=== PATIENT | female | born 1990 ===

== ENCOUNTER 2018-02-21 14:27 | Emergency (ER) | payer MEDICAID, OTHER ==
[2018-02-21 15:04] VITALS: BP 117/77; PULSE 56; RESP 17; TEMP 98.5; O2SAT 100; BMI 23.3
--- NOTE | 2018-02-21 15:28 | ED PDOC ---
Arrival/HPI - General Chief Complaint: Female Genitourinary Time Seen by Provider: 02/21/18 15:12 Historian: Patient - History of Present Illness Narrative History of Present Illness (Text): 02/21/18 15:20 27yo female with no pmhx who present with 4days history of sharp/stabbing pelvic pain that radiates down her legs. States she was taking Tylenol with mild relieve. States her period lasted for 3weeks before the pain started and she has been having odorous vaginal discharge since the pain started. She notes that she is sexually active. Denies nausea, vomiting, diarrhea, dizziness chest pain, SOB, any other complaint. Past Medical History - Provider Review Nursing Documentation Reviewed: Yes - Psychiatric Hx Substance Use: No - Surgical History Other/Comment: IUD Family/Social History - Physician Review Nursing Documentation Reviewed: Yes Family/Social History: Unknown Family HX Smoking Status: Never Smoked Hx Alcohol Use: No Hx Substance Use: No Allergies/Home Meds Allergies/Adverse Reactions: Allergies No Known Allergies Allergy (Verified 02/21/18 15:03) Review of Systems - Physician Review All systems were reviewed & negative as marked: Yes - Review of Systems Constitutional: Normal Eyes: Normal ENT: Normal Respiratory: Normal Cardiovascular: Normal Gastrointestinal: Abdominal Pain. absent: Constipation, Diarrhea, Nausea, Vomiting, Hematochezia, Hematemesis Genitourinary Female: Vaginal Discharge. absent: Dysuria, Frequency, Hematuria Musculoskeletal: Normal Skin: Normal Neurological: Normal Endocrine: Normal Hemo/Lymphatic: Normal Psychiatric: Normal Physical Exam Vital Signs Reviewed: Yes Vital Signs Temp Pulse Resp BP Pulse Ox 02/21/18 15:03 98.5 F 56 L 17 117/77 100 Temperature: Afebrile Blood Pressure: Normal Pulse: Regular Respiratory Rate: Normal Appearance: Positive for: Well-Appearing, Non-Toxic, Comfortable Pain Distress: None Mental Status: Positive for: Alert and Oriented X 3 - Systems Exam Head: Present: Atraumatic, Normocephalic Pupils: Present: PERRL Extroacular Muscles: Present: EOMI Conjunctiva: Present: Normal Mouth: Present: Moist Mucous Membranes Neck: Present: Normal Range of Motion Respiratory/Chest: Present: Clear to Auscultation, Good Air Exchange. No: Re spiratory Distress, Accessory Muscle Use Cardiovascular: Present: Regular Rate and Rhythm, Normal S1, S2. No: Murmurs Abdomen: Present: Tenderness (PElvic), Normal Bowel Sounds. No: Distention, Peritoneal Signs, Rebound, Guarding, McBurney's Point Tender, Rovsing's Sign Present Genitourinary/Pelvic Exam: Present: Vaginal Discharge (Frothy whitish discharge noted in vault). No: Cervical Motion Tendernes Back: Present: Normal Inspection Upper Extremity: Present: Normal Inspection. No: Cyanosis, Edema Lower Extremity: Present: Normal Inspection. No: Edema Neurological: Present: GCS=15, CN II-XII Intact, Speech Normal Skin: Present: Warm, Dry, Normal Color. No: Rashes Psychiatric: Present: Alert, Oriented x 3, Normal Insight, Normal Concentration Medical Decision Making ED Course and Treatment: 02/21/18 17:15 PT in ED for stated history. She was not in any distress. She had pelvic tenderness and US was ordered to r/o ovarian torsion. UA and Chlamydia/Gono ordered. She have UTI and was treated she also requested to be treated for STD and Rocephin/Azithromycin was given Advised to abstain from sex until she gets her result and if positive have the sexual partner treated - Lab Interpretations Lab Results: Lab Results 02/21/18 15:40: Urine Color Light yellow, Urine Appearance Clear, Urine pH 7.0, Ur Specific Pattison 1.010, Urine Protein Negative, Urine Glucose (UA) Negative, Urine Ketones Negative, Urine Blood Negative, Urine Nitrate Negative, Urine Bilirubin Negative, Urine Urobilinogen 0.2, Ur Leukocyte Esterase Large H, Urine RBC Negative, Urine WBC 2 - 5, Ur Epithelial Cells 1 - 3, Urine Bacteria Trace - RAD Interpretation Radiology Orders: 02/21/18 15:19 PELVIS ULTRASOUND [US] Routine - Medication Orders Current Medication Orders: Discontinued Medications Azithromycin (Zithromax) 1,000 mg PO STAT STA; Protocol Stop: 02/21/18 17:03 Ceftriaxone Sodium (Rocephin) 250 mg IM STAT STA; Protocol Stop: 02/21/18 17:02 Disposition/Present on Arrival - Present on Arrival Any Indicators Present on Arrival: No History of DVT/PE: No History of Uncontrolled Diabetes: No Urinary Catheter: No History of Decub. Ulcer: No History Surgical Site Infection Following: None - Disposition Have Diagnosis and Disposition been Completed?: Yes Diagnosis: UTI (urinary tract infection), Vaginal discharge Disposition: HOME/ ROUTINE Disposition Time: 17:10 Patient Plan: Discharge Patient Problems: Current Active Problems Problem Status Onset UTI (urinary tract infection) Acute Vaginal discharge Acute Condition: STABLE Discharge Instructions (ExitCare): Urinary Tract Infections in Adults Additional Instructions: Follow up with your [employer]UFA[employer]ING [employer] TECHNICIAN Return to ED for any new or worsening symptoms Prescriptions: Cephalexin [Keflex] 500 mg PO TID #21 capsule Referrals: PCP,NO [Primary Care Provider] - Follow up with primary [facility] at [facility] [place] [Outside] - [facility] [Outside] - Follow up with primary Forms: [employer] (Kinyarwanda)
[2018-02-21 15:59] LABS: URINE APPEARANCE CLEAR (CLEAR); URINE BILIRUBIN NEGATIVE (NEGATIVE); URINE BLOOD NEGATIVE (NEGATIVE); URINE COLOR LIGHT YELLOW (YELLOW); URINE GLUCOSE (UA) NEGATIVE (NEGATIVE); URINE LEUKOCYTE ESTERASE LARGE Leu/uL (NEGATIVE); URINE PROTEIN NEGATIVE mg/dL (<30 mg/dL); URINE UROBILINOGEN 0.2 E.U./dL (<1 E.U./dL)
[2018-02-21 16:18] LABS: URINE BACTERIA TRACE (NEG); URINE RBC NEGATIVE /hpf (0-2)
--- NOTE | 2018-02-21 16:54 | US ---
Date of service: 02/21/2018 HISTORY: PElvic pain COMPARISON: None available. TECHNIQUE: Transabdominal pelvic ultrasound FINDINGS: UTERUS: Measures 10.1 x 5.0 x 6.7 cm. Anteverted. ENDOMETRIUM: IUD. CERVIX: No cervical abnormality identified. RIGHT OVARY: Measures 3.4 x 2.6 x 3.7 cm. Blood flow is demonstrated. LEFT OVARY: Measures 3.3 x 2.7 x 3.2 cm. Blood flow is demonstrated. FREE FLUID: Small fluid, right adnexal region. OTHER FINDINGS: None. IMPRESSION: IUD. Small adnexal fluid on the right.
[2018-02-21] MEDS ORDERED: cefTRIAXone (Rocephin) 250 mg Inj IM STA (17:01)
== END 2018-02-21 17:20 | disposition home or self-care (01) ==
LOC: ED 14:27
DX: N39.0 Urinary tract infection, site not specified (principal); N89.8 Other specified noninflammatory disorders of vagina

== ENCOUNTER 2018-02-27 18:04 | Emergency (ER) | payer MEDICAID ==
[2018-02-27 18:05] VITALS: BMI 23.3
--- NOTE | 2018-02-27 18:44 | ED PDOC ---
Arrival/HPI - General Historian: Patient - History of Present Illness Narrative History of Present Illness (Text): 02/27/18 18:41 27 y/o female, no signifiant pmh, nkda, her for the treatment for gonorrhea/chlamdyia and prescription change for her UTI. Pt. was call back by me as she stated that she didn't received her rocephine and azithromycin on the last ER visit, no abdominal or pelvic pain, no vaginal bleeding or discharge, no headache or night sweat, no fever or chills, no weight loss, no fatigue or dizziness, no night sweat. Pt.'s urine culture noted to have enterococcus faecalis >100,000, received keflex and no sensitivity done on the cephalosporin but sensitive to the macrobid. Pt. has no flank pain. Pt. still has the prescription for the keflex and she never fill the prescription. I reviewed the triage note from the DEMAND PLANNER, my assessment to the patient and HPI is different than the triage. Pt. disagreed with the triage DEMAND PLANNER as well. <Dragan Lo - Last Filed: 02/27/18 19:14> <Arron Patricia - Last Filed: 02/27/18 19:18> - General Time Seen by Provider: 02/27/18 18:40 Past Medical History - Provider Review Nursing Documentation Reviewed: Yes - Psychiatric Hx Substance Use: No - Surgical History Other/Comment: IUD <Dragan Lo - Last Filed: 02/27/18 19:14> Family/Social History - Physician Review Nursing Documentation Reviewed: Yes Family/Social History: Unknown Family HX Smoking Status: Never Smoked Hx Alcohol Use: No Hx Substance Use: No <Dragan Lo - Last Filed: 02/27/18 19:14> Allergies/Home Meds <Dragan Lo - Last Filed: 02/27/18 19:14> <Arron Patricia - Last Filed: 02/27/18 19:18> Allergies/Adverse Reactions: Allergies No Known Allergies Allergy (Verified 02/21/18 15:03) Review of Systems - Review of Systems Constitutional: absent: Fatigue, Fevers Eyes: absent: Vision Changes ENT: absent: Hearing Changes Respiratory: absent: SOB, Cough Cardiovascular: absent: Chest Pain Gastrointestinal: absent: Abdominal Pain, Nausea, Vomiting Musculoskeletal: absent: Arthralgias, Back Pain Skin: absent: Rash, Pruritis Neurological: absent: Headache, Dizziness Psychiatric: absent: Anxiety, Depression, Suicidal Ideation <Dragan Lo - Last Filed: 02/27/18 19:14> Physical Exam - Systems Exam Head: Present: Atraumatic, Normocephalic Pupils: Present: PERRL Extroacular Muscles: Present: EOMI Conjunctiva: Present: Normal Mouth: Present: Moist Mucous Membranes Neck: Present: Normal Range of Motion Respiratory/Chest: Present: Clear to Auscultation, Good Air Exchange. No: Respiratory Distress, Accessory Muscle Use Cardiovascular: Present: Regular Rate and Rhythm, Normal S1, S2. No: Murmurs Abdomen: No: Tenderness, Distention, Peritoneal Signs Genitourinary/Pelvic Exam: Present: Other (Pt. declined) Back: Present: Normal Inspection Upper Extremity: Present: Normal Inspection. No: Cyanosis, Edema Lower Extremity: Present: Normal Inspection. No: Edema Neurological: Present: GCS=15, CN II-XII Intact, Speech Normal, Motor Func Grossly Intact, Gait Normal, Memory Normal Skin: Present: Warm, Dry, Normal Color. No: Rashes Psychiatric: Present: Alert, Oriented x 3, Normal Insight, Normal Concentration <Dragan Lo - Last Filed: 02/27/18 19:14> Vital Signs Temp Pulse Resp BP Pulse Ox 02/27/18 18:45 99.1 F 54 L 18 120/64 100 <Arron Patricia - Last Filed: 02/27/18 19:18> Medical Decision Making ED Course and Treatment: 02/27/18 18:44 -Urine hcg is negative -Rocephine and azithromycin, chlamydia is positive on 02/21/2018 visit, double checked and confirmed with the patient that she didn't received any po or IM medication in the ER and only discharge home with keflex. -Discharge home with macrobid, stop having sex for 1 week and repeat the gonorrhea/chlamydia test after 1 week with urinalysis to ensure the resolution, follow up with your own pmd and obgyn within 2 days, notify all sexual partners for the prophylatic treatment and std testing, return to the ER for any new or worsening signs or symptoms. <Dragan Lo - Last Filed: 02/27/18 19:14> - Medication Orders Current Medication Orders: Azithromycin (Zithromax) 1,000 mg PO STAT STA; Protocol Stop: 02/27/18 19:16 Ceftriaxone Sodium (Rocephin) 250 mg IM STAT STA; Protocol Stop: 02/27/18 19:16 Nitrofurantoin Macrocrystals (Macrobid) 100 mg PO STAT STA; Protocol Stop: 02/27/18 19:16 <Arron Patricia - Last Filed: 02/27/18 19:18> - PA / TRIPE COOKER / Resident Statement BRUNO has reviewed & agrees with the documentation as recorded. <Dragan Lo - Last Filed: 02/27/18 19:14> - PA / TRIPE COOKER / Resident Statement BRUNO has reviewed & agrees with the documentation as recorded. <Arron Patricia - Last Filed: 02/27/18 19:18> Disposition/Present on Arrival - Present on Arrival Any Indicators Present on Arrival: No History of DVT/PE: No History of Uncontrolled Diabetes: No Urinary Catheter: No History of Decub. Ulcer: No History Surgical Site Infection Following: None - Disposition Have Diagnosis and Disposition been Completed?: Yes Disposition Time: 18:46 Patient Plan: Discharge <Dragan Lo - Last Filed: 02/27/18 19:14> <Arron Patricia - Last Filed: 02/27/18 19:18> - Disposition Diagnosis: UTI (urinary tract infection), Chlamydia Disposition: HOME/ ROUTINE Patient Problems: Current Active Problems Problem Status Onset Chlamydia Acute UTI (urinary tract infection) Acute Condition: GOOD Additional Instructions: -Discharge home with macrobid, stop having sex for 1 week and repeat the g onorrhea/chlamydia test after 1 week with urinalysis to ensure the resolution, follow up with your own pmd and obgyn within 2 days, notify all sexual partners for the prophylatic treatment and std testing, return to the ER for any new or worsening signs or symptoms. Prescriptions: Nitrofurantoin Macrocrystals [Macrobid] 100 mg PO BID #14 cap Referrals: Sallie Justin MD [Staff Provider] - Follow up with primary [facility] at [facility] [place] [Outside] - Follow up with primary Forms: WORK NOTE
[2018-02-27 18:46] VITALS: BP 120/64; PULSE 54; RESP 18; TEMP 99.1
[2018-02-27] MEDS ORDERED: cefTRIAXone (Rocephin) 250 mg Inj IM STA (19:15)
[2018-02-27] MEDS ORDERED: Lidocaine 1% 5ml Abboject ONE (19:47)
[2018-02-27 19:59] VITALS: O2SAT 99
== END 2018-02-27 19:58 | disposition home or self-care (01) ==
LOC: ED 18:04
DX: N39.0 Urinary tract infection, site not specified (principal); A74.9 Chlamydial infection, unspecified
CPT/HCPCS: 96372; 99283; J0696

== ENCOUNTER 2018-08-21 15:36 | Emergency (ER) | payer MEDICAID | END 2018-08-21 17:31 | disposition home or self-care (01) | LOC: ED 15:36 ==